=== PATIENT | female | born 1995 | race Caucasian/White ===

== ENCOUNTER → 2019-08-10 | Outpatient (CLI) | payer OTHER | END | disposition home or self-care (01) | LOC: PRENATAL 13:01 | DX: O26.891 Other specified pregnancy related conditions, first trimester (principal); O36.80X1 Pregnancy with inconclusive fetal viability, fetus 1 ==

== ENCOUNTER 2019-08-13 06:00 | Day surgery (SDC) | payer OTHER | END 2019-08-13 16:00 | disposition home or self-care (01) | LOC: CIR.AMB 06:00 | DX: O02.1 Missed abortion (principal) ==